=== PATIENT | male | born 1975 ===

== ENCOUNTER 2018-05-05 10:16 | Outpatient (CLI) | payer OTHER ==
--- NOTE | 2018-05-05 11:01 | RAD ---
CHEST TWO VIEWS: HISTORY: Abnormal lung sounds. COMPARISON: None. FINDINGS: Normal cardiac silhouette. Pulmonary vessels and hilum are normal. No consolidation or mass. No pn eumothorax or osseous abnormalities. IMPRESSION: No acute cardiopulmonary process. POS: [id number]
== END 2018-05-05 10:17 | disposition home or self-care (01) ==
LOC: RAD-FRANK 10:16
PROVIDERS: ATTEND Nurse Practitioner Family
DX: Z00.00 Encounter for general adult medical examination without abnormal findings (principal); R03.0 Elevated blood-pressure reading, without diagnosis of hypertension; R09.89 Other specified symptoms and signs involving the circulatory and respiratory systems
CPT/HCPCS: 71046